=== PATIENT | female | born 1990 | race African-American/Black ===

== ENCOUNTER 2018-05-27 17:39 | Emergency (ER) | payer OTHER ==
[~2018-05-27] VITALS: Ht 175.3 cm; Wt 59.0 kg
[2018-05-27 17:45] VITALS: BP 136/86
--- NOTE | 2018-05-27 17:45 | NUR ---
PATIENT [facility] TO ER CHAIR [facility]
--- NOTE | 2018-05-27 18:10 | NUR ---
PT SHIV HUDSON FOR PREBOOK, PT STATES SHE IS UNSURE IF SHE IS , "I TOOK 3 TEST, 2 WERE POSITIVE. PT DENIES PAIN AT THIS TIME. VSS. GIOVANNA GODINEZ TO SEE PT.
[2018-05-27 18:53] VITALS: BP 132/88
--- NOTE | 2018-05-27 18:53 | NUR ---
Patient discharged with v/s stable. Written and verbal after care instructions given and explained. Patient verbalized understanding. Police with in custody. All questions addressed prior to discharge. Advised to follow up with PMD.
== END 2018-05-27 18:53 ==
LOC: MED 17:39
DX: Z00.00 Encounter for general adult medical examination without abnormal findings (principal); Z02.89 Encounter for other administrative examinations
CPT/HCPCS: 81002; 81025; 99283